=== PATIENT | female | born 1980 | race Caucasian/White ===

== ENCOUNTER → 2021-04-19 | Day surgery (SDC) | payer OTHER ==
[~2021-04-19] VITALS: Ht 162.6 cm; Wt 86.2 kg
[~2021-04-19] MED LIST: DEPO-PROVE150 MG/11 IM; PERCOCET 5-3251 EACH PO
[2021-04-19 07:04] LABS: HCG (URINE) SCREEN NEGATIVE (NEGATIVE)
[2021-04-19 07:26] LABS: BASOPHIL 0.5 % (0-2); EOSINOPHIL 0.7 % (0-5); HGB 13.5 g/dl (12.5-16.0); LYMPHOCYTE 21.6 % (15-48); MCH 34.2 pg (25.0-31.0); MCHC 34.6 g/dL (32.0-36.0); MCV 98.7 fL (78.0-100.0); MONOCYTE 4.4 % (0-12); MPV 9.3 fL (6.0-9.5); NEUTROPHIL 72.2 % (41-80); NRBC 0; PLT 303 K/uL (150-400); RBC 3.95 M/uL (4.20-5.40); RDW 13.5 % (11.5-14.0); WBC 14.1 K/uL (4.0-10.5)
[2021-04-19 08:01] LABS: ALBUMIN 3.7 g/dL (3.4-5.0); BILIRUBIN - TOTAL 0.4 mg/dL (0.2-1.0); BUN/CREAT RATIO (CALC) 17.3 RATIO; CREATININE 0.98 mg/dL (0.51-0.95); GLOBULIN (CALCULATION) 4.2 g/dL; POTASSIUM 4.6 mmol/L (3.5-5.1); TOTAL PROTEIN 7.9 g/dL (6.4-8.2)
== END | disposition home or self-care (01) ==
LOC: FAS 06:23
PROVIDERS: Orthopaedic Surgery
DX: T85.698A Other mechanical complication of other specified internal prosthetic devices, implants and grafts, initial encounter (principal); S43.431A Superior glenoid labrum lesion of right shoulder, initial encounter
CPT/HCPCS: 36415; 80053; 84703; 85025; 93005; J0171; J0690; J1100; J2250; J2405; J2704; J7120